=== PATIENT | female | born 1970 | race Caucasian/White ===

== ENCOUNTER 2018-09-02 20:18 | Emergency (ER) | payer MEDICAID ==
[~2018-09-02] VITALS: Ht 157.5 cm; Wt 81.6 kg
[2018-09-02 20:32] VITALS: BP_SYST 115
--- NOTE | 2018-09-02 20:38 | NUR ---
Patient triaged and placed in waiting room. VSS and patient appears in no acute distress at this time. Accompanied by visitor, awaiting available bed, and MD notified of need for MSE.
--- NOTE | 2018-09-02 20:58 | NUR ---
Patient to ER bed 8 for evaluation. Side rails up.
--- NOTE | 2018-09-02 21:00 | NUR ---
Patient to ER via triage for evaluation of left knee pain after twisting her knee. Patient is awake, alert and oriented in no acute distress, vital signs stable, respirations even and unlabored, skin warm and dry to touch. Patient able to ambulate to bed 8 with slight limp, patient has had x-ray prior to arrival to room. Awaiting evaluation by ER MD, will continue to observe and assess.
--- NOTE | 2018-09-02 21:23 | NUR ---
PT moved to h1
--- NOTE | 2018-09-02 21:26 | NUR ---
ER at bedside examining patient.
[2018-09-02] MEDS ORDERED: KETOROLAC TROMETHAMINE 60 MG/2 ML VIAL IM ONE (21:45)
[2018-09-02 22:00] VITALS: BP_SYST 110
--- NOTE | 2018-09-02 22:00 | NUR ---
Patient given written and verbal discharge instructions and verbalizes understanding. ER MD discussed with patient the results and treatment provided. Patient in stable condition. ID arm band removed. Rx of [place] given. Patient educated on pain management and to follow up with PMD. Pain Scale 0. Opportunity for questions provided and answered. Medication side effect fact sheet provided. Patient left ER in no acute distress, able to ambulate without difficulty with slow, steady gait with family at her side. No adverse reaction noted to medication, patient tolerating cristóbal wrap.
== END 2018-09-02 22:00 | disposition home or self-care (01) ==
LOC: SED 20:18
DX: S90.32XA Contusion of left foot, initial encounter (principal); Z90.710 Acquired absence of both cervix and uterus; X50.9XXA Other and unspecified overexertion or strenuous movements or postures, initial encounter; Y93.89 Activity, other specified; Y92.89 Other specified places as the place of occurrence of the external cause; Y99.8 Other external cause status
CPT/HCPCS: 73564; 96372; 99283; J1885